=== PATIENT | male | born 1980 | race Hispanic/Latino ===

== ENCOUNTER 2020-01-02 01:57 | Emergency (ER) | payer OTHER ==
[2020-01-02] MEDS ORDERED: ACETAMINOPHEN EXTRA STRENGTH 500 MG TABLET ONE (02:52)
[2020-01-02] MEDS ORDERED: IBUPROFEN 600 MG TABLET ONE (02:52)
== END 2020-01-02 04:50 | disposition home or self-care (01) ==
LOC: EDH 01:57
DX: S62.396A Other fracture of fifth metacarpal bone, right hand, initial encounter for closed fracture (principal); W18.39XA Other fall on same level, initial encounter; Y93.89 Activity, other specified; Y92.89 Other specified places as the place of occurrence of the external cause; Y99.8 Other external cause status
CPT/HCPCS: 29125; 73130

== ENCOUNTER 2021-08-31 14:05 | Emergency (ER) | payer BC, OTHER ==
[~2021-08-31] VITALS: Ht 172.7 cm; Wt 74.8 kg
[2021-08-31] MEDS ORDERED: 0.9%NACL 1000ML 1,000 ML IV ONE (14:30)
[2021-08-31] MEDS ORDERED: LORAZEPAM 2 MG/ML 1 ML VIAL IVP ONE (14:30)
[2021-08-31] MEDS ORDERED: DiphenhydrAMINE HCL 50 MG/ML VIAL IM ONE (14:30)
[2021-08-31] MEDS ORDERED: FAMOTIDINE 20MG TAB PO ONE (14:30)
[2021-08-31 14:33] LABS: BASOPHILS % (AUTO) 0.8 % (0.0-5.0); EOSINOPHILS % (AUTO) 1.8 % (0.0-8.0); HEMATOCRIT 43.3 % (42-54); LYMPHOCYTES % (AUTO) 34.4 % (21.0-51.0); MEAN CORPUSCULAR HEMOGLOBIN 30.6 pg (27.0-33.0); MEAN CORPUSCULAR HGB CONC 34.6 g/dL (32.0-36.0); MEAN CORPUSCULAR VOLUME 88.4 fL (79-99); MONOCYTES % (AUTO) 7.3 % (3.0-13.0); NEUTROPHILS % (AUTO) 55.5 % (40.0-77.0); PLATELET COUNT (AUTO) 221 K/uL (130-400); RED CELL DISTRIBUTION WIDTH 11.4 % (11.0-15.5); WHITE BLOOD COUNT (AUTO) 6.5 K/uL (4.8-10.8)
[2021-08-31 14:45] LABS: CREATININE 0.9 mg/dL (0.5-1.5); POTASSIUM 3.4 mmol/L (3.5-5.1)
[2021-08-31 14:50] LABS: ALBUMIN 3.9 g/dL (3.5-5.0); BILIRUBIN,TOTAL 0.5 mg/dL (0.2-1.0); TOTAL PROTEIN, SERUM 7.5 g/dL (6.0-8.3)
[2021-08-31] MEDS ORDERED: POTASSIUM BICARB/CIT AC 25 MEQ TABLET.EFF PO ONE (15:30)
[2021-08-31 16:04] VITALS: BP 106/68
== END 2021-08-31 16:19 | disposition home or self-care (01) ==
LOC: EDH 14:05
DX: F41.0 Panic disorder [episodic paroxysmal anxiety] (principal); T50.B95A Adverse effect of other viral vaccines, initial encounter; Y92.89 Other specified places as the place of occurrence of the external cause; Z79.899 Other long term (current) drug therapy
CPT/HCPCS: 36415; 80053; 85025; 96361; 96372; 96374; 99284; J1200; J2060; J7030